=== PATIENT | female | born 1975 | race African-American/Black ===

== ENCOUNTER 2017-02-28 19:06 | Emergency (ER) | payer OTHER ==
[~2017-02-28] VITALS: Ht 165.1 cm; Wt 68.0 kg
[~2017-02-28 19:06] MED LIST: PREN-88 PO
[2017-02-28] MEDS ORDERED: HYDROCODONE/ACETAMINOPHEN 5/325MG TABLET PO ONE (23:00)
[2017-02-28 23:37] VITALS: BP 127/84
[2017-02-28 23:59] LABS: CLARITY URINE CLEAR (CLEAR); COLOR URINE YELLOW (YELLOW); GLUCOSE URINE NEGATIVE (NEGATIVE); KETONES URINE 2+ (NEGATIVE); LEUKOCYTE ESTERASE URINE TRACE (NEGATIVE); NITRITE URINE NEGATIVE (NEGATIVE); OCCULT BLOOD URINE NEGATIVE (NEGATIVE); PH URINE 5.5 (4.5-8.0); PROTEIN URINE NEGATIVE (NEGATIVE); SPECIFIC GRAVITY URINE 1.014 (1.005-1.030); UROBILINOGEN URINE 0.2 E.U./dL (0.2-1.0)
== END 2017-03-01 02:30 | disposition home or self-care (01) ==
LOC: ER 19:06
DX: S05.11XA Contusion of eyeball and orbital tissues, right eye, initial encounter (principal); S20.212A Contusion of left front wall of thorax, initial encounter; G40.909 Epilepsy, unspecified, not intractable, without status epilepticus; Y04.0XXA Assault by unarmed brawl or fight, initial encounter; Y93.89 Activity, other specified; Y92.018 Other place in single-family (private) house as the place of occurrence of the external cause
CPT/HCPCS: 70450; 70486; 81001; 81025; 99285

== ENCOUNTER 2018-04-01 10:51 | Emergency (ER) | payer OTHER ==
[~2018-04-01] VITALS: Ht 172.7 cm; Wt 100.0 kg
[2018-04-01] MEDS ORDERED: SODIUM CHLORIDE 0.9% 1,000 ML IV ONE (11:09)
[2018-04-01] MEDS ORDERED: VANCOMYCIN 1 G PREMIX 200 ML IV ONE (11:15)
[2018-04-01] MEDS ORDERED: PIPERACILLIN/TAZ 3.375G PREMIX 50 ML IV ONE (11:15)
[2018-04-01 11:49] LABS: BASOPHILS % 0.8 % (0.0-2.0); EOSINOPHILS % 5.7 % (0.0-5.0); HEMATOCRIT. 42.9 % (36.0-48.0); HEMOGLOBIN. 14.4 g/dL (12.0-16.0); LYMPHOCYTES % 23.6 % (20.0-50.0); MEAN CORPUSCULAR HEMOGLOBIN 30.7 pg (28.0-32.0); MEAN CORPUSCULAR VOLUME 91.7 fL (81.0-99.0); MEAN PLATELET VOLUME 7.9 fl (7.4-10.4); MONOCYTES % 5.4 % (2.0-8.0); NEUTROPHILS % 64.5 % (40.0-76.0); PLATELET 348 x1000/uL (130-400); RED BLOOD CELL COUNT 4.68 mill/uL (4.2-5.4); RED CELL DISTRIBUTION WIDTH 13.7 % (11.6-14.6)
[2018-04-01 11:55] LABS: CHLORIDE 104 mEq/L (98-107)
[2018-04-01 11:59] LABS: ETHANOL BLOOD < 10 mg/dL
[2018-04-01 12:28] LABS: *AMPHETAMINES SCREEN URINE NEGATIVE (NEGATIVE); *BENZODIAZEPINES SCREEN URINE NEGATIVE (NEGATIVE); *COCAINE SCREEN URINE NEGATIVE (NEGATIVE)
[2018-04-01 12:29] LABS: CANNABINOID URINE SCREEN NEGATIVE (NEGATIVE)
[2018-04-01 12:30] LABS: METHADONE URINE SCREEN NEGATIVE (NEGATIVE)
[2018-04-01 12:33] LABS: OPIATES URINE SCREEN NEGATIVE (NEGATIVE); PHENCYCLIDINE URINE SCREEN NEGATIVE (NEGATIVE)
[2018-04-01 12:38] LABS: HCG SCREEN NEGATIVE
[2018-04-01 13:07] LABS: *BARBITURATES SCREEN URINE PRESUMTIVE POSITIVE (NEGATIVE)
[2018-04-01] MEDS ORDERED: TETANUS, DIPHTHERIA, PERTUSSIS VAC/PF 0.5ML (>7YR OLD) IM ONE (17:30)
[2018-04-01] MEDS ORDERED: LIDOCAINE HCL/PF 1% 10 MG/ML 5ML VIAL IJ ONE (17:30)
[2018-04-01] MEDS ORDERED: BACITRACIN ZINC OINT UDPKT TOP ONE (17:30)
[2018-04-01 20:25] VITALS: BP 118/90
== END 2018-04-01 21:57 | disposition short-term general hospital (02) ==
LOC: ER 10:51 → CANBEDREQ 21:09 → ER 21:57
DX: S81.851D Open bite, right lower leg, subsequent encounter (principal); L03.115 Cellulitis of right lower limb; L97.219 Non-pressure chronic ulcer of right calf with unspecified severity; I10 Essential (primary) hypertension; W54.0XXD Bitten by dog, subsequent encounter
CPT/HCPCS: 10060; 36415; 71045; 73700; 80053; 80305; 81025; 84703; 85025; 85610; 87040; 90471; 90715; 96365; 96366; 96368; 99291; G0482; J2543; J3370; J3490; J7030

== ENCOUNTER 2018-05-04 11:03 | Emergency (ER) | payer OTHER ==
[~2018-05-04] VITALS: Ht 165.1 cm; Wt 65.0 kg
[2018-05-04] MEDS ORDERED: LORAZEPAM 2MG/ML CPJ IM ONE (11:45)
[2018-05-04 11:59] LABS: CLARITY URINE CLEAR (CLEAR); COLOR URINE YELLOW (YELLOW); KETONES URINE NEGATIVE (NEGATIVE); LEUKOCYTE ESTERASE URINE NEGATIVE (NEGATIVE); NITRITE URINE NEGATIVE (NEGATIVE); OCCULT BLOOD URINE NEGATIVE (NEGATIVE); PROTEIN URINE NEGATIVE (NEGATIVE); UROBILINOGEN URINE 0.2 E.U./dL (0.2-1.0)
[2018-05-04 12:45] LABS: BASOPHILS % 0.8 % (0.0-2.0); EOSINOPHILS % 2.9 % (0.0-5.0); HEMATOCRIT. 41.8 % (36.0-48.0); HEMOGLOBIN. 13.5 g/dL (12.0-16.0); LYMPHOCYTES % 20.5 % (20.0-50.0); MEAN CORPUSCULAR HEMOGLOBIN 29.8 pg (28.0-32.0); MEAN CORPUSCULAR VOLUME 92.2 fL (81.0-99.0); MEAN PLATELET VOLUME 8.1 fl (7.4-10.4); NEUTROPHILS % 68.8 % (40.0-76.0); PLATELET 306 x1000/uL (130-400); RED BLOOD CELL COUNT 4.53 mill/uL (4.2-5.4)
[2018-05-04 12:49] LABS: CHLORIDE 108 mEq/L (98-107)
[2018-05-04 12:52] LABS: INR 1.1; PROTHROMBIN TIME 10.9 sec (9.1-11.1)
[2018-05-04] MEDS ORDERED: PHENOBARBITAL 30 MG TABLET PO ONE (13:15)
[2018-05-04 16:14] VITALS: BP 112/79
== END 2018-05-04 16:34 | disposition home or self-care (01) ==
LOC: ER 11:03
DX: G40.909 Epilepsy, unspecified, not intractable, without status epilepticus (principal); R03.0 Elevated blood-pressure reading, without diagnosis of hypertension
CPT/HCPCS: 36415; 80053; 80184; 81003; 81025; 83605; 85025; 85610; 93005; 96372; 99284; J2060

== ENCOUNTER 2018-09-30 08:55 | Emergency (ER) | payer OTHER ==
[~2018-09-30] VITALS: Ht 167.6 cm; Wt 74.0 kg
[2018-09-30] MEDS ORDERED: LORAZEPAM 1MG TABLET PO ONE (09:15)
[2018-09-30 09:38] LABS: EOSINOPHILS % 6.4 % (0.0-5.0); HEMATOCRIT. 39.6 % (36.0-48.0); HEMOGLOBIN. 13.1 g/dL (12.0-16.0); LYMPHOCYTES % 29.1 % (20.0-50.0); MEAN CORPUSCULAR HEMOGLOBIN 30.2 pg (28.0-32.0); MEAN CORPUSCULAR VOLUME 91.7 fL (81.0-99.0); MEAN PLATELET VOLUME 7.9 fl (7.4-10.4); MONOCYTES % 7.1 % (2.0-8.0); NEUTROPHILS % 56.4 % (40.0-76.0); PLATELET 213 x1000/uL (130-400); RED BLOOD CELL COUNT 4.32 mill/uL (4.2-5.4)
[2018-09-30 09:42] LABS: CHLORIDE 109 mEq/L (98-107)
[2018-09-30 09:47] LABS: ETHANOL BLOOD < 10 mg/dL
[2018-09-30 09:53] LABS: PHENOBARBITAL 40.1 ug/mL (15.0-40.0)
[2018-09-30 10:05] LABS: HCG SCREEN NEGATIVE
[2018-09-30 10:11] LABS: CLARITY URINE CLEAR (CLEAR); COLOR URINE YELLOW (YELLOW); KETONES URINE NEGATIVE (NEGATIVE); LEUKOCYTE ESTERASE URINE TRACE (NEGATIVE); NITRITE URINE NEGATIVE (NEGATIVE); OCCULT BLOOD URINE TRACE (NEGATIVE); PROTEIN URINE NEGATIVE (NEGATIVE); SPECIFIC GRAVITY URINE 1.008 (1.005-1.030); UROBILINOGEN URINE 0.2 E.U./dL (0.2-1.0)
[2018-09-30 10:38] LABS: *AMPHETAMINES SCREEN URINE NEGATIVE (NEGATIVE); *BENZODIAZEPINES SCREEN URINE NEGATIVE (NEGATIVE); *COCAINE SCREEN URINE NEGATIVE (NEGATIVE); METHADONE URINE SCREEN NEGATIVE (NEGATIVE); OPIATES URINE SCREEN NEGATIVE (NEGATIVE)
[2018-09-30 10:39] LABS: CANNABINOID URINE SCREEN NEGATIVE (NEGATIVE); PHENCYCLIDINE URINE SCREEN NEGATIVE (NEGATIVE)
[2018-09-30 10:41] LABS: *BARBITURATES SCREEN URINE PRESUMTIVE POSITIVE (NEGATIVE)
[2018-09-30 12:34] VITALS: BP 120/72
== END 2018-09-30 12:47 | disposition home or self-care (01) ==
LOC: ER 09:10
DX: G40.89 Other seizures (principal); F32.9 Major depressive disorder, single episode, unspecified; I10 Essential (primary) hypertension
CPT/HCPCS: 36415; 80184; 80305; 80307; 80320; 80329; 84703; 99283; G0480

== ENCOUNTER 2019-09-14 10:50 | Emergency (ER) | payer OTHER ==
[~2019-09-14] VITALS: Ht 170.2 cm; Wt 100.0 kg
[2019-09-14] MEDS ORDERED: PHENOBARBITAL 100MG TABLET PO ONE (11:30)
[2019-09-14] MEDS ORDERED: SODIUM CHLORIDE 0.9% 1,000 ML IV ONE (11:30)
[2019-09-14] MEDS ORDERED: KETOROLAC 30MG/ML VIAL IV STA (11:30)
[2019-09-14 12:08] LABS: BASOPHILS % 1.2 % (0.0-2.0); CHLORIDE 112 mEq/L (98-107); EOSINOPHILS % 12.2 % (0.0-5.0); HEMATOCRIT. 40.6 % (36.0-48.0); HEMOGLOBIN. 13.8 g/dL (12.0-16.0); LYMPHOCYTES % 21.9 % (20.0-50.0); MEAN CORPUSCULAR HEMOGLOBIN 31.5 pg (28.0-32.0); MEAN CORPUSCULAR VOLUME 92.4 fL (81.0-99.0); MEAN PLATELET VOLUME 8.6 fl (7.4-10.4); MONOCYTES % 5.6 % (2.0-8.0); NEUTROPHILS % 59.1 % (40.0-76.0); PLATELET 274 x1000/uL (130-400); RED BLOOD CELL COUNT 4.39 mill/uL (4.2-5.4); RED CELL DISTRIBUTION WIDTH 14.7 % (11.6-14.6)
[2019-09-14 12:12] LABS: ETHANOL BLOOD < 10 mg/dL
[2019-09-14 12:16] LABS: PHENOBARBITAL 32.3 ug/mL (15.0-40.0)
[2019-09-14] MEDS ORDERED: ACETAMINOPHEN 500MG TABLET PO ONE (12:30)
[2019-09-14 12:50] VITALS: BP 112/71
== END 2019-09-14 14:30 | disposition home or self-care (01) ==
LOC: ER 10:50
DX: Z76.0 Encounter for issue of repeat prescription (principal); G40.909 Epilepsy, unspecified, not intractable, without status epilepticus; I10 Essential (primary) hypertension
CPT/HCPCS: 36415; 70450; 80053; 80184; 80320; 85025; 93005; 96374; 99285; J1885; J7030; G0480

== ENCOUNTER 2019-12-04 17:43 | Emergency (ER) | payer OTHER ==
[~2019-12-04] VITALS: Ht 165.1 cm; Wt 91.0 kg
[2019-12-04] MEDS ORDERED: SODIUM CHLORIDE 0.9% 1,000 ML IV ONE (18:28)
[2019-12-04] MEDS ORDERED: GABAPENTIN 300MG CAPSULE PO ONE (18:45)
[2019-12-04 20:45] LABS: BASOPHILS % 0.7 % (0.0-2.0); EOSINOPHILS % 9.6 % (0.0-5.0); HEMATOCRIT. 40.1 % (36.0-48.0); HEMOGLOBIN. 13.3 g/dL (12.0-16.0); LYMPHOCYTES % 26.1 % (20.0-50.0); MEAN CORPUSCULAR HEMOGLOBIN 30.8 pg (28.0-32.0); MEAN CORPUSCULAR VOLUME 92.8 fL (81.0-99.0); MONOCYTES % 5.4 % (2.0-8.0); NEUTROPHILS % 58.2 % (40.0-76.0); RED BLOOD CELL COUNT 4.32 mill/uL (4.2-5.4); RED CELL DISTRIBUTION WIDTH 13.3 % (11.6-14.6)
[2019-12-04 20:48] LABS: CHLORIDE 107 mEq/L (98-107)
[2019-12-04 20:53] LABS: ETHANOL BLOOD < 10 mg/dL
[2019-12-04 20:57] LABS: CREATINE KINASE 112 IU/L (26-192)
[2019-12-04] MEDS ORDERED: KETOROLAC 30MG/ML VIAL IV ONE (21:00)
[2019-12-04 21:08] LABS: MEAN PLATELET VOLUME 7.7 fl (7.4-10.4); PLATELET 227 x1000/uL (130-400)
[2019-12-04 23:00] VITALS: BP 122/69
== END 2019-12-04 23:15 | disposition home or self-care (01) ==
LOC: ER 17:43
DX: R51 Headache (principal); M54.2 Cervicalgia; M54.89 Other dorsalgia; I10 Essential (primary) hypertension; G40.909 Epilepsy, unspecified, not intractable, without status epilepticus
CPT/HCPCS: 36415; 70450; 71045; 72070; 72100; 72125; 80053; 80184; 80320; 82550; 85025; 93005; 96360; 99285; J7030; G0480

== ENCOUNTER 2020-06-18 10:12 | Emergency (ER) | payer MEDICAID, OTHER ==
[~2020-06-18] VITALS: Ht 172.7 cm; Wt 75.0 kg
[2020-06-18] MEDS ORDERED: ACETAMINOPHEN 325MG TABLET PO STA (10:32)
[2020-06-18] MEDS ORDERED: LORAZEPAM 1MG TABLET PO ONE (10:45)
[2020-06-18 11:07] LABS: EOSINOPHILS % 8.4 % (0.0-5.0); HEMATOCRIT. 41.9 % (36.0-48.0); HEMOGLOBIN. 13.9 g/dL (12.0-16.0); LYMPHOCYTES % 21.6 % (20.0-50.0); MEAN CORPUSCULAR HEMOGLOBIN 29.8 pg (28.0-32.0); MEAN CORPUSCULAR VOLUME 89.9 fL (81.0-99.0); MEAN PLATELET VOLUME 7.6 fl (7.4-10.4); MONOCYTES % 5.6 % (2.0-8.0); NEUTROPHILS % 63.4 % (40.0-76.0); PLATELET 323 x1000/uL (130-400); RED BLOOD CELL COUNT 4.66 mill/uL (4.2-5.4); RED CELL DISTRIBUTION WIDTH 13.1 % (11.6-14.6)
[2020-06-18 11:12] LABS: CHLORIDE 109 mEq/L (98-107)
[2020-06-18 11:16] LABS: ETHANOL BLOOD < 10 mg/dL
[2020-06-18 12:05] LABS: CLARITY URINE CLEAR (CLEAR); COLOR URINE YELLOW (YELLOW); KETONES URINE NEGATIVE (NEGATIVE); LEUKOCYTE ESTERASE URINE TRACE (NEGATIVE); NITRITE URINE POSITIVE (NEGATIVE); OCCULT BLOOD URINE 2+ (NEGATIVE); PROTEIN URINE NEGATIVE (NEGATIVE); SPECIFIC GRAVITY URINE 1.015 (1.005-1.030); UROBILINOGEN URINE 0.2 E.U./dL (0.2-1.0)
[2020-06-18 12:41] LABS: *AMPHETAMINES SCREEN URINE NEGATIVE (NEGATIVE); *BENZODIAZEPINES SCREEN URINE NEGATIVE (NEGATIVE); *COCAINE SCREEN URINE NEGATIVE (NEGATIVE); CANNABINOID URINE SCREEN NEGATIVE (NEGATIVE); METHADONE URINE SCREEN NEGATIVE (NEGATIVE)
[2020-06-18 12:42] LABS: OPIATES URINE SCREEN NEGATIVE (NEGATIVE)
[2020-06-18 12:44] LABS: *BARBITURATES SCREEN URINE PRESUMTIVE POSITIVE (NEGATIVE); PHENCYCLIDINE URINE SCREEN PRESUMTIVE POSITIVE (NEGATIVE)
[2020-06-18 14:13] VITALS: BP 104/73
== END 2020-06-18 14:18 | disposition home or self-care (01) ==
LOC: ER 10:12
DX: G40.909 Epilepsy, unspecified, not intractable, without status epilepticus (principal); N30.00 Acute cystitis without hematuria; T40.991A Poisoning by other psychodysleptics [hallucinogens], accidental (unintentional), initial encounter; I10 Essential (primary) hypertension; Z98.890 Other specified postprocedural states; Y92.89 Other specified places as the place of occurrence of the external cause
CPT/HCPCS: 36415; 80053; 80305; 80320; 81003; 81025; 85025; 93005; 99285; G0480

== ENCOUNTER 2021-01-05 20:17 | Emergency (ER) | payer MEDICAID, OTHER ==
[~2021-01-05] VITALS: Ht 167.6 cm; Wt 90.0 kg
[2021-01-05] MEDS ORDERED: IBUPROFEN 800MG TABLET PO ONE (21:45)
[2021-01-05 23:17] LABS: CHLORIDE 109 mEq/L (98-107)
[2021-01-05 23:19] LABS: BASOPHILS % 0.5 % (0.0-2.0); HEMATOCRIT. 42.7 % (36.0-48.0); HEMOGLOBIN. 14.1 g/dL (12.0-16.0); LYMPHOCYTES % 17.7 % (20.0-50.0); MEAN CORPUSCULAR VOLUME 93.6 fL (81.0-99.0); MEAN PLATELET VOLUME 7.1 fl (7.4-10.4); MONOCYTES % 4.6 % (2.0-8.0); NEUTROPHILS % 74.2 % (40.0-76.0); PLATELET 308 x1000/uL (130-400); RED BLOOD CELL COUNT 4.56 mill/uL (4.2-5.4); RED CELL DISTRIBUTION WIDTH 14.7 % (11.6-14.6)
[2021-01-05 23:22] LABS: ETHANOL BLOOD 240 mg/dL
[2021-01-06 01:37] VITALS: BP 127/68
== END 2021-01-06 01:38 | disposition home or self-care (01) ==
LOC: ER 20:17
DX: S70.11XA Contusion of right thigh, initial encounter (principal); F10.129 Alcohol abuse with intoxication, unspecified; F19.129 Other psychoactive substance abuse with intoxication, unspecified; Y90.8 Blood alcohol level of 240 mg/100 ml or more; V03.90XA Pedestrian on foot injured in collision with car, pick-up truck or van, unspecified whether traffic or nontraffic accident, initial encounter; Y93.89 Activity, other specified; Y92.488 Other paved roadways as the place of occurrence of the external cause; I10 Essential (primary) hypertension; G40.909 Epilepsy, unspecified, not intractable, without status epilepticus; Z86.59 Personal history of other mental and behavioral disorders
CPT/HCPCS: 36415; 73552; 80048; 80320; 85025; 99284; Z7610; G0480